=== PATIENT | male | born 1980 | race Two or more races ===

== ENCOUNTER 2021-08-14 12:10 | Emergency (ER) | payer OTHER ==
[2021-08-14] MEDS ORDERED: NORCO 5-325 TA1 EACH PO (15:36)
[2021-08-14] MEDS ORDERED: CYCLOBENZAPRINE10 MG PO (15:45)
== END 2021-08-14 15:53 | disposition home or self-care (01) ==
LOC: FER 12:10
DX: S43.402A Unspecified sprain of left shoulder joint, initial encounter (principal); S39.012A Strain of muscle, fascia and tendon of lower back, initial encounter; Z28.310 Unvaccinated for COVID-19; W20.8XXA Other cause of strike by thrown, projected or falling object, initial encounter; Y92.89 Other specified places as the place of occurrence of the external cause; Y99.0 Civilian activity done for income or pay
CPT/HCPCS: 72125; 72128; 72131; 73030; 73552